=== PATIENT | male | born 1970 | race Caucasian/White ===

== ENCOUNTER 2019-12-08 12:36 | Inpatient (IN) | payer MEDICAID, OTHER ==
[~2019-12-08] VITALS: Ht 170.2 cm; Wt 96.8 kg
[2019-12-08] MEDS ORDERED: IBUPROFEN 600MG TABLET PO ONE (13:45)
[2019-12-08] MEDS ORDERED: ONDANSETRON HCL 4MG/2ML INJ IV STA (14:11)
[2019-12-08] MEDS ORDERED: KETOROLAC 30MG/ML VIAL IV STA (14:11)
[2019-12-08] MEDS ORDERED: SODIUM CHLORIDE 0.9% 1000ML BAG (SEPSIS BOLUS) IV ONE (14:15)
[2019-12-08] MEDS ORDERED: CEFTRIAXONE 1 G PREMIX 50 ML IV ONE (14:15)
[2019-12-08 15:09] LABS: BASOPHILS % 0.4 % (0.0-2.0); EOSINOPHILS % 0.6 % (0.0-5.0); HEMATOCRIT. 45.2 % (42.0-52.0); HEMOGLOBIN. 15.3 g/dL (14.0-18.0); LYMPHOCYTES % 16.9 % (20.0-50.0); MEAN CORPUSCULAR HEMOGLOBIN 31.3 pg (28.0-32.0); MEAN CORPUSCULAR VOLUME 92.3 fL (80.0-94.0); MEAN PLATELET VOLUME 8.9 fl (7.4-10.4); MONOCYTES % 13.7 % (2.0-8.0); NEUTROPHILS % 68.4 % (40.0-76.0); PLATELET 210 x1000/uL (130-400); RED CELL DISTRIBUTION WIDTH 13.4 % (11.6-14.6)
[2019-12-08 15:14] LABS: CHLORIDE 101 mEq/L (98-107)
[2019-12-08 16:22] LABS: CLARITY URINE CLEAR (CLEAR); COLOR URINE YELLOW (YELLOW); KETONES URINE NEGATIVE (NEGATIVE); LEUKOCYTE ESTERASE URINE NEGATIVE (NEGATIVE); NITRITE URINE NEGATIVE (NEGATIVE); OCCULT BLOOD URINE NEGATIVE (NEGATIVE); PH URINE 6.5 (4.5-8.0); PROTEIN URINE TRACE (NEGATIVE); SPECIFIC GRAVITY URINE 1.011 (1.005-1.030)
[2019-12-08] MEDS ORDERED: IPRATROPIUM/ALBUTEROL 0.5-3(2.5)MG/3ML NEB ORI PRN (17:15)
[2019-12-08] MEDS ORDERED: GUAIFENESIN 200MG/10ML SUGAR FREE UDC PO PRN (17:15)
[2019-12-08] MEDS ORDERED: ACETAMINOPHEN 325MG TABLET PO PRN ×2 (17:15)
[2019-12-08] MEDS ORDERED: CLONIDINE 0.1MG TABLET PO PRN (17:15)
[2019-12-08] MEDS ORDERED: MAGNESIUM/ALUMINUM HYDROXIDE/SIMETHICONE 30ML UDC PO PRN (17:15)
[2019-12-08] MEDS ORDERED: TRAMADOL 50MG TABLET PO PRN (17:15)
[2019-12-08] MEDS ORDERED: NITROGLYCERIN 0.4MG TABLET SL SL PRN (17:15)
[2019-12-08] MEDS ORDERED: DOCUSATE SODIUM 100MG CAPSULE PO PRN (17:15)
[2019-12-08] MEDS ORDERED: ONDANSETRON HCL 4MG/2ML INJ IV PRN (17:15)
[2019-12-08] MEDS ORDERED: ENOXAPARIN 40MG/0.4ML SYR SUBCUT NR (17:16)
[2019-12-08] MEDS ORDERED: AZITHROMYCIN 500 MG in DEXT 5% WATER 250 ML IV SCH (17:18)
[2019-12-08] MEDS ORDERED: GUAIFENESIN/DM 600MG/30MG ER TAB 12HR PO SCH (18:32)
[2019-12-08] MEDS: ASCORBIC ACID 500 MG TABLET PO SCH (21:42)
[2019-12-08] MEDS ORDERED: FAMOTIDINE 20MG TABLET PO SCH (22:00)
[2019-12-08 23:48] LABS: CREATINE KINASE 198 IU/L (39-308)
[2019-12-08 23:49] LABS: CREATINE KINASE MB FRACTION < 1.0 ng/mL (0.5-3.6)
[2019-12-09 06:42] LABS: CREATINE KINASE 245 IU/L (39-308)
[2019-12-09 06:43] LABS: CREATINE KINASE MB FRACTION < 1.0 ng/mL (0.5-3.6)
[2019-12-09 08:10] VITALS: BP 124/76
[2019-12-09] MEDS ORDERED: CEFTRIAXONE 1 G PREMIX 50 ML IV SCH (09:00)
[2019-12-09] MEDS ORDERED: ENOXAPARIN 40MG/0.4ML SYR SUBCUT SCH (09:00)
[2019-12-09 09:20] LABS: *AMPHETAMINES SCREEN URINE NEGATIVE (NEGATIVE); *BARBITURATES SCREEN URINE NEGATIVE (NEGATIVE); *BENZODIAZEPINES SCREEN URINE NEGATIVE (NEGATIVE); *COCAINE SCREEN URINE NEGATIVE (NEGATIVE)
[2019-12-09 09:21] LABS: CANNABINOID URINE SCREEN NEGATIVE (NEGATIVE); METHADONE URINE SCREEN NEGATIVE (NEGATIVE); OPIATES URINE SCREEN NEGATIVE (NEGATIVE); PHENCYCLIDINE URINE SCREEN NEGATIVE (NEGATIVE)
[2019-12-09 09:32] VITALS: BP 124/76
[2019-12-09] MEDS: ZINC SULFATE 220 MG ( 50 ) CAPSULE PO SCH (10:22)
[2019-12-09] MEDS: GUAIFENESIN/DM 600MG/30MG ER TAB 12HR PO SCH ×2 (10:22→21:17)
[2019-12-09] MEDS: ASCORBIC ACID 500 MG TABLET PO SCH ×2 (10:22→21:17)
[2019-12-09] MEDS: FAMOTIDINE 20MG TABLET PO SCH ×2 (10:22→21:17)
[2019-12-09 12:00] VITALS: BP 141/66
[2019-12-09] MEDS: CEFTRIAXONE 1 G PREMIX 50 ML IV SCH (14:02)
[2019-12-09 16:00] VITALS: BP 112/79
[2019-12-09] MEDS ORDERED: AZITHROMYCIN 500 MG in DEXT 5% WATER 250 ML IV SCH (18:00)
[2019-12-09] MEDS: ALBUTEROL 6.7GM HFA INHALER ORI SCH ×2 (18:00→23:41)
[2019-12-09] MEDS: AZITHROMYCIN 500 MG in DEXT 5% WATER 250 ML IV SCH (18:07)
[2019-12-09 20:00] VITALS: BP 115/68
[2019-12-09] MEDS ORDERED: ZOLPIDEM TARTRATE 5MG TABLET PO PRN (21:00)
[2019-12-09] MEDS: ENOXAPARIN 30MG/0.3ML SYR SUBCUT SCH (21:17)
[2019-12-10] VITALS: BP 108/80
[2019-12-10 04:00] VITALS: BP 118/78
[2019-12-10] MEDS: ALBUTEROL 6.7GM HFA INHALER ORI SCH ×4 (05:03→23:46)
[2019-12-10 08:00] VITALS: BP 123/76
[2019-12-10] MEDS: ZINC SULFATE 220 MG ( 50 ) CAPSULE PO SCH (08:06)
[2019-12-10] MEDS: FAMOTIDINE 20MG TABLET PO SCH ×2 (08:06→20:27)
[2019-12-10] MEDS: ASCORBIC ACID 500 MG TABLET PO SCH ×2 (08:06→20:27)
[2019-12-10] MEDS: ENOXAPARIN 30MG/0.3ML SYR SUBCUT SCH ×2 (08:06→20:28)
[2019-12-10 12:00] VITALS: BP 111/69
[2019-12-10] MEDS: CEFTRIAXONE 1 G PREMIX 50 ML IV SCH (15:01)
[2019-12-10] MEDS: GUAIFENESIN/DM 600MG/30MG ER TAB 12HR PO SCH ×2 (15:02→20:27)
[2019-12-10 16:00] VITALS: BP 120/96
[2019-12-10] MEDS: AZITHROMYCIN 500 MG in DEXT 5% WATER 250 ML IV SCH (17:01)
[2019-12-10 20:00] VITALS: BP 124/84
[2019-12-11] VITALS: BP 119/82
[2019-12-11 04:00] VITALS: BP 125/60
[2019-12-11] MEDS: ALBUTEROL 6.7GM HFA INHALER ORI SCH ×4 (05:47→23:05)
[2019-12-11 08:00] VITALS: BP 119/78
[2019-12-11] MEDS: GUAIFENESIN/DM 600MG/30MG ER TAB 12HR PO SCH ×2 (08:40→20:02)
[2019-12-11] MEDS: FAMOTIDINE 20MG TABLET PO SCH ×2 (08:40→20:02)
[2019-12-11] MEDS: ZINC SULFATE 220 MG ( 50 ) CAPSULE PO SCH (08:40)
[2019-12-11] MEDS: ASCORBIC ACID 500 MG TABLET PO SCH ×2 (08:40→20:02)
[2019-12-11] MEDS: ENOXAPARIN 30MG/0.3ML SYR SUBCUT SCH ×2 (08:41→20:02)
[2019-12-11 12:00] VITALS: BP 126/57
[2019-12-11] MEDS: AZITHROMYCIN 500 MG in DEXT 5% WATER 250 ML IV SCH ×2 (14:56→17:31)
[2019-12-11] MEDS: CEFTRIAXONE 1 G PREMIX 50 ML IV SCH (14:59)
[2019-12-11 18:00] VITALS: BP 99/67
[2019-12-11 20:00] VITALS: BP 105/65
[2019-12-12] VITALS: BP 105/67
[2019-12-12 04:00] VITALS: BP 110/70
[2019-12-12] MEDS: ALBUTEROL 6.7GM HFA INHALER ORI SCH ×4 (05:05→23:54)
[2019-12-12 08:00] VITALS: BP 104/56
[2019-12-12] MEDS: GUAIFENESIN/DM 600MG/30MG ER TAB 12HR PO SCH ×2 (10:09→21:17)
[2019-12-12] MEDS: FAMOTIDINE 20MG TABLET PO SCH ×2 (10:09→21:17)
[2019-12-12] MEDS: ASCORBIC ACID 500 MG TABLET PO SCH ×2 (10:09→21:17)
[2019-12-12] MEDS: ENOXAPARIN 30MG/0.3ML SYR SUBCUT SCH ×2 (10:09→21:17)
[2019-12-12] MEDS: ZINC SULFATE 220 MG ( 50 ) CAPSULE PO SCH (10:09)
[2019-12-12 12:00] VITALS: BP 103/74
[2019-12-12] MEDS: CEFTRIAXONE 1 G PREMIX 50 ML IV SCH (13:21)
[2019-12-12 16:00] VITALS: BP 105/70
[2019-12-12] MEDS: AZITHROMYCIN 500 MG in DEXT 5% WATER 250 ML IV SCH (18:18)
[2019-12-12 20:00] VITALS: BP 104/69
[2019-12-13] VITALS: BP 103/65
[2019-12-13 04:00] VITALS: BP 97/56
[2019-12-13] MEDS: ALBUTEROL 6.7GM HFA INHALER ORI SCH ×2 (05:49→12:48)
[2019-12-13] MEDS ORDERED: ASCO500T20 PO (07:09)
[2019-12-13] MEDS ORDERED: ALBU6.7H9 ORI (07:09)
[2019-12-13] MEDS ORDERED: AZIT500T8 MT (07:09)
[2019-12-13] MEDS ORDERED: FAMO20TA8 PO (07:09)
[2019-12-13] MEDS ORDERED: ZINC220C2 PO (07:09)
[2019-12-13 08:00] VITALS: BP 127/78
[2019-12-13] MEDS: ASCORBIC ACID 500 MG TABLET PO SCH (08:58)
[2019-12-13] MEDS: ZINC SULFATE 220 MG ( 50 ) CAPSULE PO SCH (08:58)
[2019-12-13] MEDS: FAMOTIDINE 20MG TABLET PO SCH (08:58)
[2019-12-13] MEDS: GUAIFENESIN/DM 600MG/30MG ER TAB 12HR PO SCH (08:58)
[2019-12-13] MEDS ORDERED: AZITHROMYCIN 250 MG TABLET PO SCH (09:00)
[2019-12-13] MEDS: ENOXAPARIN 30MG/0.3ML SYR SUBCUT SCH (09:01)
[2019-12-13 10:43] VITALS: BP 127/78
[2019-12-13 12:00] VITALS: BP 121/75
== END 2019-12-13 13:35 | disposition home or self-care (01) | DRG 720 ==
LOC: EDBD 12:36 → ER 12:36 → 7WST 16:52 → EDBEDREQ 16:59 → ENRESERV 12-09 07:32
PROVIDERS: ADMIT Internal Medicine; ATTEND Internal Medicine
DX: A41.89 Other specified sepsis (principal); J96.00 Acute respiratory failure, unspecified whether with hypoxia or hypercapnia; U07.1 COVID-19; E44.1 Mild protein-calorie malnutrition; E83.51 Hypocalcemia; J12.89 Other viral pneumonia; D72.810 Lymphocytopenia; Z68.33 Body mass index [BMI] 33.0-33.9, adult
CPT/HCPCS: 36415; 71045; 80053; 80305; 81003; 82550; 82553; 83036; 83605; 83615; 83880; 84145; 84484; 85025; 87635; 93005; 99285; J0456; J0696; J1650; J1885; J2405; J7030; J7060

== ENCOUNTER 2024-08-30 16:45 | Emergency (ER) | payer MEDICAID ==
[~2024-08-30] VITALS: Ht 172.7 cm; Wt 102.0 kg
[~2024-08-30 16:45] MED LIST: ALBU6.7H3 ORI; ASCO500T20 PO; AZIT500T8 MT; FAMO20TA8 PO; ZINC220C2 PO
[2024-08-30 16:50] VITALS: O2SAT 99
[2024-08-30 17:00] VITALS: BP 178/102; PULSE 97; RESP 18; TEMP 97.9; O2SAT 95
[2024-08-30] MEDS ORDERED: AZIT250T12 MT (21:01)
== END 2024-08-30 22:00 | disposition home or self-care (01) ==
LOC: ER 16:53
DX: J18.9 Pneumonia, unspecified organism (principal)
CPT/HCPCS: 71045; 99283